=== PATIENT | female | born 1950 | race Two or more races ===

== ENCOUNTER 2025-04-12 11:30 | Emergency (ER) | payer OTHER ==
[~2025-04-12] VITALS: Ht 152.4 cm; Wt 81.6 kg
[2025-04-12] MEDS ORDERED: ORPHENADRINE CITRATE 30 MG/ML AMPUL IM STA (12:22)
[2025-04-12] MEDS ORDERED: KETOROLAC TROMETHAMINE 30 MG VIAL IM STA (12:22)
[2025-04-12] MEDS ORDERED: DEXAMETHASONE SODIUM PHOSPHATE 4 MG/ML VIAL IM STA (12:22)
[2025-04-12] MEDS ORDERED: KETOROLAC TROMETHAMINE 30 MG VIAL ONE (13:19)
[2025-04-12] MEDS ORDERED: ORPHENADRINE CITRATE 30 MG/ML AMPUL ONE (13:19)
[2025-04-12] MEDS ORDERED: DEXAMETHASONE SODIUM PHOSPHATE 4 MG/ML VIAL ONE (13:19)
[2025-04-12] MEDS ORDERED: NAPROXEN500 MG PO (15:36)
[2025-04-12] MEDS ORDERED: ZANAFLEX4 MG PO (15:36)
== END 2025-04-12 16:18 | disposition home or self-care (01) ==
LOC: ER 11:31
DX: M62.838 Other muscle spasm (principal); M25.562 Pain in left knee; M54.2 Cervicalgia; M25.512 Pain in left shoulder; I10 Essential (primary) hypertension
CPT/HCPCS: 72040; 73030; 73560; 96372; 99283; J1100; J1885; J2360